=== PATIENT | male | born 1980 | race Two or more races ===

== ENCOUNTER 2021-09-14 11:18 | Emergency (ER) | payer OTHER ==
[~2021-09-14] VITALS: Ht 167.6 cm; Wt 71.7 kg
[2021-09-14 13:40] LABS: BASOPHILS % (AUTO) 0.6 % (0.0-2.0); EOSINOPHILS % (AUTO) 3.2 % (0.0-6.0); HEMATOCRIT 36 % (39-51); HEMOGLOBIN 11.6 g/dL (13.5-17.5); LYMPHOCYTES # (AUTO) 2.3 K/uL (0.8-4.8); LYMPHOCYTES % (AUTO) 36.6 % (20.0-44.0); MEAN CORPUSCULAR HGB CONC 33 g/dl (31.0-36.0); MEAN CORPUSCULAR VOLUME 84 fL (80-96); MONOCYTES # (AUTO) 0.5 K/uL (0.1-1.30); MONOCYTES % (AUTO) 8.4 % (2.0-12.0); NEUTROPHILS # (AUTO) 3.2 K/uL (1.8-8.9); NEUTROPHILS % (AUTO) 51.2 % (43.0-81.0); PLATELET COUNT (AUTO) 239 K/uL (150-450); RED BLOOD CELL COUNT(AUTO) 4.26 MIL/uL (4.5-6.0); WHITE BLOOD COUNT (AUTO) 6.2 K/uL (4.3-11.0)
--- NOTE | 2021-09-14 13:52 | NUR ---
URINE COLLECTED AND SENT TO LAB
--- NOTE | 2021-09-14 13:53 | NUR ---
OKSANA spoke with nurse Fung regarding pt. Nurse mentioned that pt. is not alert. SW will attempt to meet with pt. once he is awake and alert.
[2021-09-14 13:57] LABS: ALANINE AMINOTRANSFERASE 31 U/L (12-78); ALBUMIN 3.2 g/dL (3.4-5.0); ALKALINE PHOSPHATASE 127 U/L (46-116); ASPARTATE AMINOTRANSFERASE 27 U/L (15-37); BILIRUBIN,DIRECT 0.1 mg/dL (0.0-0.2); BILIRUBIN,TOTAL 0.3 mg/dL (0.2-1.0); CALCIUM, SERUM 8.6 mg/dL (8.5-10.1); CARBON DIOXIDE 32 mmol/L (21-32); CHLORIDE 107 mmol/L (98-107); CREATININE 0.9 mg/dL (0.6-1.3); GLUCOSE 95 mg/dL (74-106); POTASSIUM 3.7 mmol/L (3.5-5.1); SODIUM SERUM 144 mmol/L (136-145); TOTAL PROTEIN, SERUM 7.2 g/dL (6.4-8.2); UREA NITROGEN, BLOOD 18 mg/dL (7-18)
[2021-09-14 13:58] LABS: ACETAMINOPHEN 0 ug/ml (10-30); ALCOHOL, BLOOD < 3 mg/dL (0-0)
[2021-09-14 14:02] LABS: BILIRUBIN,URINE Negative (NEGATIVE); COLOR,URINE YELLOW (YELLOW); LEUKOCYTE ESTERASE ,URINE Negative (NEGATIVE); NITRITE, URINE Negative (NEGATIVE); PROTEIN,URINE 30 mg/dl (NEGATIVE); UGLUCOSE Negative (NEGATIVE); UROBILINOGEN,URINE 0.2 EU/dL (0.2)
[2021-09-14 14:08] LABS: BACTERIA,URINE Few /HPF (None Seen); SQUAMOUS EPITHELIAL CELL,UR Few /HPF (None Seen); WBC,URINE 0-2 /HPF (0-3)
[2021-09-14] MEDS ORDERED: SULF1TAB48 PO (15:13)
--- NOTE | 2021-09-14 15:43 | NUR ---
pt medically cleared. seen by [facility] social worker. pt agitated left ED without signing ACI and homeless refferals.
--- NOTE | 2021-09-14 15:45 | NUR ---
SS Consult: SS consult for Homeless. Pt. Is a 41-year-old male. Pt. demonstrates adequate insight to the reason for hospitalization. Per pt., he was brought to hospital by the baker doughnut due to "needing help." Pt. was oriented x2 and was not cooperative. During interview, pt. was not capable of following directions and did not make appropriate eye-contact. SW explored pt.'s Hx of mental health and substance abuse. Pt. reported no Hx of mental health, SI/HI, denied AH/VH, paranoia or delusions. Per pt., he has a Hx of alcohol. SW explored pt.'s living situation. Per pt., he is homeless. Per pt., he did not want to answer further questions. SW offered Addiction resources and pt. denied. Pt. was rude and loud. Pt. denied signing homeless waiver. Plan: SW provided homeless and addiction resources and pt. denied. SW left resources and homeless in pt.'s chart. Resources Provided: Year-round shelters: [facility] [address] [place] [address] ; [facility] [address] [place] [address]; [facility] [id number] [facility] [address] Winter Shelters: [place] Provider: Kaylee [facility] [place] Address: [address], [address] # of Beds: 47 Population Served: [facility] 6 | [facility] Natalie Richardson [place] Provider: [facility] Address: [address], [address] # of Beds: 66 Population Served: [facility] [employer] [place] Provider: [facility] Serve Address: [address] [facility], [address] # of Beds: 56 Population Served: [facility] [place] Provider: /[facility] Address: [address] [facility], [address] # of Beds: 49 Population Served: [facility] 8 | [facility] Provider: First to Serve Address: [address] [place] [address], [address] # of Beds: 37 Population Served: [facility]: [facility]: [address] [place] ; [facility] [address] [facility] ; [facility] [address] [facility] . Food Resources: [facility] [facility] [address] [place]; Meet Each Need with Dign[facility] ([facility]) [address] [facility]; [facility] Food Pantry 6858 [facility]; [facility] [address]81 [facility]. Mental Health resources provided: [facility] [address] [place], [place] [address] ; [facility] [address] [facility] [address], [place], [place] [id number] ; [facility] [address] [address] [place] [place], [place] [id number] ; [facility] [address] [place], [place] [address] Healthcare Clinics: [facility] [address] [facility], [address] [place]. [place] ; [facility] [address] [facility] [address] [place] [address]; [place] [address] [facility]. [place] [phone] Substance Abuse resources provided included: [facility] Substance Abuse Self-Helpline (SAS) ; [facility] [address] [facility]. [place] [address] ; [facility] [address] [facility] [address] ; [facility] [address] [facility] [place] [address] [facility] [address] [facility] [id number] ; [facility] [address] [facility] [address] ; [facility] [address] [facility] [id number] ; [facility] Substance Abuse Helpline([facility] ; [facility] ; [facility]; [facility]; [facility] [place]; [facility] Ramon Medrano; [facility] [place]; Cameron Gilman [place]; [facility]; [facility] [place]; Alcoholics Anonymous -SFV; Ek-Nwdb-Jqjuont ; Marijuana Anonymous -SFV; Narcotics Anonymous www.[email or web address];
[2021-09-14 15:46] VITALS: BP 125/84
== END 2021-09-14 15:46 | disposition home or self-care (01) ==
LOC: ER 11:20
DX: F12.90 Cannabis use, unspecified, uncomplicated (principal); F19.10 Other psychoactive substance abuse, uncomplicated; R40.0 Somnolence; J45.909 Unspecified asthma, uncomplicated
CPT/HCPCS: 36415; 80048-TC; 80076-TC; 81001; 85025-TC; G0480